=== PATIENT | male | born 1970 | race Caucasian/White ===

== ENCOUNTER → 2017-10-02 | Outpatient (CLI) | payer BC | LOC: LAB.O 10:14 | PROVIDERS: ATTEND Orthopaedic Surgery | DX: Z01.818 Encounter for other preprocedural examination (principal) ==

== ENCOUNTER → 2017-10-02 | Outpatient (CLI) | payer OTHER ==
--- NOTE | 2017-10-02 12:10 | RAD ---
EXAM DESCRIPTION: Hand,Left 3 Views CLINICAL HISTORY: PAIN IN LEFT HAND COMPARISON: None Available. TECHNIQUE: AP, LATERAL, AND OBLIQUE FINDINGS: Three-view left hand shows no fracture or dislocation. Mild degenerative changes at the base of the thumb and at the base of the fifth metacarpal are evident in the possibility of previous remote injury would be a definite consideration particularly at the base of the fifth metacarpal. An acute fracture is not apparent in the bones are normally mineralized. No definite wrist injury or foreign body noted. IMPRESSION: 1. Mild degenerative changes at the base of the thumb and moderate degenerative changes at the base of the fifth metacarpal suggesting possibly old injury in this location. Electronically signed by: Giovanni Schofield MD 10/02/2017 12:09 PM [facility]
--- NOTE | 2017-10-02 12:18 | RAD ---
EXAM DESCRIPTION: Hand,Right 3 Views CLINICAL HISTORY: PAIN IN RIGHT HAND COMPARISON: None Available. TECHNIQUE: AP, LATERAL, AND OBLIQUE FINDINGS: Three-view right hand shows no dislocation. Slight irregularity and slight notching of the tuft of the long finger with questionable soft tissue swelling is present. Possibility of a previous injury or a very subtle minimal fracture of the tuft the disc of the third distal phalanx should be considered. Remainder the hand appears intact. No soft tissue foreign body is seen. IMPRESSION: 1. Subtle enlargement and irregularity with questionable minimal acute or previous injury to the tuft of the third distal phalanx. Otherwise negative right hand. Electronically signed by: Giovanni Schofield MD 10/02/2017 12:17 PM [facility]
== END ==
LOC: RAD 07:55
PROVIDERS: ATTEND Orthopaedic Surgery
DX: M79.642 Pain in left hand (principal); M79.641 Pain in right hand

== ENCOUNTER → 2017-12-21 | Outpatient (CLI) | payer BC | LOC: LAB.O 09:39 | PROVIDERS: ATTEND Orthopaedic Surgery | DX: Z01.818 Encounter for other preprocedural examination (principal) ==

== ENCOUNTER 2017-12-27 05:46 | Day surgery (SDC) | payer BC ==
[2017-12-27] MEDS ORDERED: BUPIVACAINE 0.25% INJ 30 ML VIAL INJ ONE (09:19)
[2017-12-27] MEDS ORDERED: LIDOCAINE 1% 50 ML VIAL INJ ONE (09:19)
[2017-12-27] MEDS ORDERED: PROPOFOL 200 MG/20 ML VIAL IV ONE (10:00)
[2017-12-27] MEDS ORDERED: SODIUM CHL 0.9% 100ML MINI-BAG 100 ML IVPB ONE (10:02)
[2017-12-27] MEDS ORDERED: ceFAZolin SODIUM 1 GM VIAL ONE (10:02)
[2017-12-27] MEDS ORDERED: LACTATED RINGERS 1,000 ML ONE (10:02)
[2017-12-27] MEDS: ceFAZolin SODIUM 1 GM VIAL ONE ×2 (10:54→11:06)
[2017-12-27] MEDS: VANCOMYCIN HCL INJ 1,000 MG VIAL IVPB ONE ×2 (10:55→11:06)
[2017-12-27 12:09] VITALS: BP 151/89; TEMP 97.7; O2SAT 98
--- NOTE | 2017-12-28 13:22 | OP ---
DATE OF PROCEDURE: 12/27/17 PREOPERATIVE DIAGNOSIS: 1. Carpal tunnel syndrome. POSTOPERATIVE DIAGNOSIS: 1. Carpal tunnel syndrome. PROCEDURE: 1. Carpal tunnel release. SURGEON: Theo Cho MD. NUCLEAR RADIATION ENGINEER: Isaac Roberts CST, -Margarito. ANESTHESIA: Local with sedation. COMPLICATIONS: None. FINDINGS: Severe narrowing of the median nerve across the carpal tunnel. INDICATION: Mahad has a long history of severe wrist pain that has been associated with numbness. He has had an EMG which does indicate carpal tunnel syndrome. He has tried braces and injections, however, has failed to gain relief. Because of his ongoing symptoms, he has requested operative intervention. After discussing the risks, benefits and alternatives to that, the patient has given informed consent for carpal tunnel release. PROCEDURE: The patient was brought to the Operating Room and placed in the supine position. Sedation was administered and local anesthetic was injected into the operative area under sterile conditions. After the injection of anesthetic, the arm was sterilely prepped and draped. A longitudinal incision was made directly overlying the transverse carpal ligament and blunt dissection was carried down to the ligament. The transverse carpal ligament was sharply transected along its length and a [place] elevator was used to ensure complete release of the ligament. Once release had been confirmed, the wound was thoroughly irrigated and the wound was closed with Nylon suture. A sterile dressing was placed and the patient was taken to the Day Surgery Unit. POSTOPERATIVE INSTRUCTIONS: The patient has been encouraged to do range of motion of the digits and will followup with us in two days. #[id number] [facility]
== END 2017-12-27 11:45 | disposition home or self-care (01) ==
LOC: AMB 05:46
PROVIDERS: ATTEND Orthopaedic Surgery
DX: G56.01 Carpal tunnel syndrome, right upper limb (principal); I10 Essential (primary) hypertension; K21.9 Gastro-esophageal reflux disease without esophagitis; F17.210 Nicotine dependence, cigarettes, uncomplicated; J45.909 Unspecified asthma, uncomplicated; Z88.8 Allergy status to other drugs, medicaments and biological substances; Z79.899 Other long term (current) drug therapy
CPT/HCPCS: 01810; 64721; J0690; J3370; J3490; J7050; J7120

== ENCOUNTER 2018-01-19 05:51 | Day surgery (SDC) | payer BC ==
[2018-01-19] MEDS ORDERED: ceFAZolin SODIUM 1 GM VIAL ONE ×2 (06:01→06:47)
[2018-01-19] MEDS ORDERED: LACTATED RINGERS 1,000 ML ONE (06:01)
[2018-01-19] MEDS ORDERED: SODIUM CHL 0.9% 100ML MINI-BAG 100 ML IVPB ONE (06:01)
[2018-01-19] MEDS ORDERED: MIDAZOLAM INJ 2 MG/2 ML VIAL ONE (06:46)
[2018-01-19] MEDS ORDERED: fentaNYL CITRATE INJ 50 MCG/ML AMP ONE (06:46)
[2018-01-19] MEDS ORDERED: BUPIVACAINE 0.25% INJ 30 ML VIAL INJ ONE (06:47)
[2018-01-19] MEDS ORDERED: VANCOMYCIN HCL INJ 1,000 MG VIAL IVPB ONE (06:48)
[2018-01-19] MEDS ORDERED: LIDOCAINE 1% 10 ML VIAL INJ ONE (07:00)
[2018-01-19] MEDS ORDERED: PROPOFOL 200 MG/20 ML VIAL IV ONE (07:00)
[2018-01-19] MEDS: LIDOCAINE 1% 10 ML VIAL INJ ONE ×2 (07:18→07:34)
--- NOTE | 2018-01-19 08:11 | OP ---
DATE OF PROCEDURE: 01/19/18 PREOPERATIVE DIAGNOSIS: 1. Carpal tunnel syndrome. POSTOPERATIVE DIAGNOSIS: 1. Carpal tunnel syndrome. PROCEDURE: 1. Carpal tunnel release. SURGEON: Theo Cho MD. POST HOLE DIGGING MACHINE OPERATOR: Isaac Roberts CST, SA-C. ANESTHESIA: Local with sedation. COMPLICATIONS: None. FINDINGS: Severe thickening of the transverse carpal ligament with narrowing of the median. INDICATION: Mr. Burgess has a long history of severe wrist pain and associated symptoms consistent with carpal tunnel syndrome. Because of his ongoing symptoms and failure of conservative measures, he has requested operative intervention. After discussing the risks, benefits and alternatives to that, the patient has given informed consent for carpal tunnel release. PROCEDURE: The patient was brought to the Operating Room and placed in the supine position. Sedation was administered and local anesthetic was injected into the operative area under sterile conditions. After the injection of anesthetic, the arm was sterilely prepped and draped. A longitudinal incision was made directly overlying the transverse carpal ligament and blunt dissection was carried down to the ligament. The transverse carpal ligament was sharply transected along its length and a [place] elevator was used to ensure complete release of the ligament. Once release had been confirmed, the wound was thoroughly irrigated and the wound was closed with Nylon suture. A sterile dressing was placed and the patient was taken to the Day Surgery Unit. POSTOPERATIVE INSTRUCTIONS: The patient has been encouraged to do range of motion of the digits and will followup with us in three days. #[id number] [facility]
[2018-01-19 08:44] VITALS: BP 122/68; TEMP 97.8; O2SAT 95
== END 2018-01-19 08:30 | disposition home or self-care (01) ==
LOC: AMB 05:51
PROVIDERS: ATTEND Orthopaedic Surgery
DX: G56.02 Carpal tunnel syndrome, left upper limb (principal); I10 Essential (primary) hypertension; K21.9 Gastro-esophageal reflux disease without esophagitis; J45.909 Unspecified asthma, uncomplicated; F17.210 Nicotine dependence, cigarettes, uncomplicated; Z79.899 Other long term (current) drug therapy
CPT/HCPCS: 01810; 64721; J0690; J2250; J3010; J3370; J3490; J7050; J7120

== ENCOUNTER → 2019-12-03 | Outpatient (CLI) | payer OTHER ==
--- NOTE | 2019-12-03 08:13 | RAD ---
EXAM DESCRIPTION: Hand,Right 3 Views: CR/DR/XR CLINICAL HISTORY: 49 years Male HAND PAIN COMPARISON: 3 view right hand October 02. TECHNIQUE: 3 VIEWS AP. Lateral. Oblique. Right hand. FINDINGS: Bone density is stable. Again seen is slight irregularity abnormal contour and notch in the tuft of the distal phalanx of the right middle finger. Stable since the prior study. No soft tissue swelling. Other bones are also stable. No soft tissue abnormality. No fluid dislocation. No abnormal radiodense objects in the soft tissues or joint spaces. IMPRESSION: Stable minimal cortical irregularity and notching in the distal phalanx of the right middle finger. No soft tissue changes. Remaining bones are also stable. Electronically signed by: Isaac Green MD 12/03/2019 8:12 AM CDT
== END ==
LOC: RAD 07:46
PROVIDERS: ATTEND Orthopaedic Surgery
DX: M79.641 Pain in right hand (principal); M89.9 Disorder of bone, unspecified